=== PATIENT | female | born 1990 | race American Indian/Alaskan Native ===

== ENCOUNTER 2018-11-05 04:18 | Emergency (ER) | payer OTHER ==
[2018-11-05 04:32] VITALS: BP 110/72
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
== END 2018-11-05 06:20 | disposition home or self-care (01) ==
LOC: ED 04:18
DX: S02.2XXA Fracture of nasal bones, initial encounter for closed fracture (principal); V49.49XA Driver injured in collision with other motor vehicles in traffic accident, initial encounter; Y93.89 Activity, other specified; Y92.89 Other specified places as the place of occurrence of the external cause; Y99.8 Other external cause status
CPT/HCPCS: 70450; 70486; 72125